=== PATIENT | female | born 1965 | race Caucasian/White ===

== ENCOUNTER → 2019-10-01 | Outpatient (CLI) | payer BC ==
[~2019-10-01] MED LIST: ATIVAN 1MG T1 MG/TAB PO; CELEXA 20MG20 MG/TAB PO; FLONASE NASAL S16 GM NS; MUCINEX 60600 MG/TA1 PO; NORCO 325 MG-51 TAB PO; PATADAY 2.5 ML2.5 ML OU; WELLBUTRIN XL150 MG PO
== END ==
LOC: MC.RAD 14:20
DX: Z12.31 Encounter for screening mammogram for malignant neoplasm of breast (principal)

== ENCOUNTER → 2020-10-06 | Outpatient (CLI) | payer BC | LOC: MC.RAD 17:00 | DX: Z12.31 Encounter for screening mammogram for malignant neoplasm of breast (principal) ==

== ENCOUNTER → 2022-01-18 | Outpatient (CLI) | payer BC | LOC: MC.RAD 07:14 | DX: Z12.31 Encounter for screening mammogram for malignant neoplasm of breast (principal); R92.8 Other abnormal and inconclusive findings on diagnostic imaging of breast ==

== ENCOUNTER → 2022-01-26 | Outpatient (CLI) | payer BC | LOC: MC.RAD 07:57 | DX: N63.20 Unspecified lump in the left breast, unspecified quadrant (principal) | CPT/HCPCS: 25758; 32106; A4648 ==

== ENCOUNTER 2022-03-02 07:06 | Day surgery (SDC) | payer BC ==
[~2022-03-02] VITALS: Ht 154.9 cm; Wt 77.0 kg
[2022-03-02] MEDS ORDERED: WELLBUTRIN XL300 M1 PO (08:57)
[2022-03-02] MEDS ORDERED: DESYREL 50MG50 MG PO (08:57)
[2022-03-02] MEDS ORDERED: CELEXA40 MG PO (08:58)
[2022-03-02] MEDS ORDERED: PRILOSEC 20MG20 MG PO (08:58)
[2022-03-02] MEDS ORDERED: LIPITOR 10MG10 MG PO (08:58)
[2022-03-02] MEDS ORDERED: CLARITIN 1010 MG/TAB PO (08:59)
[2022-03-02] MEDS ORDERED: MULTI VITAMINS1 TAB PO (08:59)
[2022-03-02] MEDS ORDERED: FLUTICASONE (08:59)
[2022-03-02] MEDS ORDERED: VOLTAREN GEL 1%1 TU TP (09:00)
[2022-03-02 09:01] VITALS: BP 121/73; PULSE 76; TEMP 97.8
--- NOTE | 2022-03-02 09:31 | NUR ---
PT taken back to Radiology via wheelchair.
--- NOTE | 2022-03-02 10:08 | NUR ---
PT returned from Radiology via wheelchair; PT back to bed, IV flushed and reconnected. Side rails x1 and call lee within reach. Sister remains present.
[2022-03-02] MEDS ORDERED: NORCO 325 MG-51 TAB PO (10:37)
[2022-03-02 13:30] VITALS: BP 124/70; PULSE 85; TEMP 97.3
--- NOTE | 2022-03-02 13:30 | NUR ---
PATIENT RETURNS TO ROOM 7 VIA CART. SHE IS ALERT AND ORIENTED. VITAL SIGNS WNL. PATIENT IS ON 2L OF OXYGEN BECAUSE WITHOUT IT SATS ARE IN THE LOW 90's. SISTER AT BEDSIDE, DOCTOR ALREADY SPOKE WITH HER. PATIENT REQUESTS APPLESAUCE AND SPRITE. WILL CONTINUE TO MONITOR.
[2022-03-02 13:45] VITALS: BP 122/69; PULSE 84
--- NOTE | 2022-03-02 13:45 | NUR ---
PATIENT IS DOING WELL, NOT HAVING ANY PAIN OR NAUSEA AFTER EATING. SISTER AT BEDSIDE. VITAL SIGNS WNL. I DECREASED 02 TO 1L TO SEE IF SHE IS ABLE TO MAINTAIN A GOOD OXYGEN LEVEL. WILL CONTINUE TO MONITOR.
[2022-03-02 14:00] VITALS: BP 109/71; PULSE 82
--- NOTE | 2022-03-02 14:00 | NUR ---
PATIENT IS READY FOR DISCHARGE. LAST SET OF VITAL SIGNS WNL. DISCHARGE INSTRUCTIONS REVIEWED, FOLLOW UP APPOINTMENT MADE FOR 03/09/22 @ 2:[address] COBOS. WILL DISCHARGE PATIENT WHEN SHE IS DRESSED AND READY TO GO.
== END 2022-03-02 15:07 | disposition home or self-care (01) ==
LOC: SDCO 07:06
DX: C50.312 Malignant neoplasm of lower-inner quadrant of left female breast (principal); Z17.0 Estrogen receptor positive status [ER+]; C77.3 Secondary and unspecified malignant neoplasm of axilla and upper limb lymph nodes
CPT/HCPCS: A4648; A9520; J0690; J1100; J2250; J2405; J2704; J2795; J3010; J7120

== ENCOUNTER 2022-03-20 10:49 | Day surgery (SDC) | payer BC ==
[~2022-03-20] VITALS: Ht 154.9 cm; Wt 77.2 kg
[~2022-03-20 10:49] MED LIST changes: +CELEXA40 MG PO; +CLARITIN 1010 MG/TAB PO; +DESYREL 50MG50 MG PO; +FLUTICASONE; +LIPITOR 10MG10 MG PO; +MULTI VITAMINS1 TAB PO; +PRILOSEC 20MG20 MG PO; +VOLTAREN GEL 1%1 TU TP; +WELLBUTRIN XL300 M1 PO
[2022-03-20 12:16] VITALS: BP 104/69; PULSE 102; TEMP 99.3
[2022-03-20] MEDS ORDERED: CENTRUM CHEWAB1 EAC4 PO (12:28)
[2022-03-20] MEDS ORDERED: MASON NATURAL2000 IU PO (12:29)
[2022-03-20] MEDS ORDERED: ATIVAN 1MG T1 MG/TAB PO (12:30)
[2022-03-20] MEDS ORDERED: OPTIVAR 6 ML 6 M6 ML OP (12:30)
[2022-03-20 14:00] VITALS: BP 134/75; PULSE 96; TEMP 98.8
[2022-03-20] MEDS ORDERED: NORCO 325 MG-51 TAB PO (14:01)
[2022-03-20] MEDS ORDERED: CEPHALEXIN500 M1 PO (14:01)
[2022-03-20 14:15] VITALS: BP 118/75; PULSE 87
[2022-03-20 14:30] VITALS: BP 107/68; PULSE 87
[2022-03-20 14:45] VITALS: BP 114/88; PULSE 90
[2022-03-20 15:00] VITALS: BP 112/70; PULSE 94
--- NOTE | 2022-03-20 15:32 | NUR ---
VS remain stable. Tolerated oral intake. IV removed and pressure dressing applied. Pt voided without difficulty. Dressings remain c/d/i. Pt dressed. Discharge teaching completed, pt verbalized understanding. Taken via wheelchair to private vehicle for dc home with spouse driving.
== END 2022-03-20 15:32 | disposition home or self-care (01) ==
LOC: SDCO 10:49
DX: C50.312 Malignant neoplasm of lower-inner quadrant of left female breast (principal); C77.3 Secondary and unspecified malignant neoplasm of axilla and upper limb lymph nodes; M96.843 Postprocedural seroma of a musculoskeletal structure following other procedure; K21.9 Gastro-esophageal reflux disease without esophagitis
CPT/HCPCS: C1788; J0690; J1644; J2250; J2405; J2704; J7120

== ENCOUNTER → 2022-03-21 | Outpatient (CLI) | payer BC ==
[~2022-03-21] MED LIST changes: +CENTRUM CHEWAB1 EAC4 PO; +CEPHALEXIN500 M1 PO; +MASON NATURAL2000 IU PO; +OPTIVAR 6 ML 6 M6 ML OP
== END ==
LOC: COL.VAS 03-16 14:45
DX: Z51.11 Encounter for antineoplastic chemotherapy (principal); C50.512 Malignant neoplasm of lower-outer quadrant of left female breast

== ENCOUNTER → 2022-03-22 | Outpatient (CLI) | payer BC | LOC: ZCOL.LAB 16:20 | DX: L02.412 Cutaneous abscess of left axilla (principal) ==

== ENCOUNTER → 2024-03-10 | Outpatient (CLI) | payer BC ==
[~2024-03-10] MED LIST changes: +ARIMIDEX1 MG PO; +CEFTIN500 MG PO; +CENTRUM SILVER1 TAB PO; +FLONASEALLERGY NS; +REFRESH PLUS 00.4 M1 OP; +ROXICODONE 55 MG/TAB PO; +VITAMIN D 400400 IU PO; +ZOFRAN ODT4 MG PO; +ZOVIRAX400 MG PO; +ZYRTEC 10MG10 MG PO
== END ==
LOC: CANSCHCLI → MC.RAD 06:55
DX: Z12.31 Encounter for screening mammogram for malignant neoplasm of breast (principal)

== ENCOUNTER 2024-03-31 10:33 | Emergency (ER) | payer BC ==
[~2024-03-31] VITALS: Ht 160 cm; Wt 80.5 kg
[2024-03-31 10:45] VITALS: TEMP 98.1
[2024-03-31 11:56] VITALS: BP 106/76; PULSE 64
== END 2024-03-31 11:56 | disposition home or self-care (01) ==
LOC: COL.ER 10:33
DX: S60.222A Contusion of left hand, initial encounter (principal); W23.0XXA Caught, crushed, jammed, or pinched between moving objects, initial encounter; Y92.810 Car as the place of occurrence of the external cause

== ENCOUNTER 2024-05-25 18:34 | Emergency (ER) | payer BC ==
[~2024-05-25] VITALS: Ht 160 cm; Wt 79.5 kg
[2024-05-25] MEDS ORDERED: Acetaminophen 325 MG TAB PO ONE (22:00)
[2024-05-25 22:22] VITALS: BP 114/75; PULSE 70; TEMP 98
== END 2024-05-25 22:31 | disposition home or self-care (01) ==
LOC: COL.ER 18:34
DX: S93.402A Sprain of unspecified ligament of left ankle, initial encounter (principal); S99.921A Unspecified injury of right foot, initial encounter; W22.8XXA Striking against or struck by other objects, initial encounter
CPT/HCPCS: 31867; L4386